=== PATIENT | female | born 1955 | race Caucasian/White ===

== ENCOUNTER 2017-02-06 09:53 | Emergency (ER) | payer OTHER ==
[2017-02-06] MEDS ORDERED: predniSONE 20 MG TAB ONE (10:34)
== END 2017-02-06 11:49 | disposition home or self-care (01) ==
LOC: NAV ERS 09:53
DX: J20.9 Acute bronchitis, unspecified (principal); I50.9 Heart failure, unspecified; E66.9 Obesity, unspecified; M10.9 Gout, unspecified; Z87.891 Personal history of nicotine dependence
CPT/HCPCS: 94640; J7506; J7620

== ENCOUNTER 2018-09-13 20:48 | Emergency (ER) | payer MEDICARE, OTHER ==
[2018-09-13] MEDS ORDERED: Sodium Chloride 0.9% 0 ML ONE (21:16)
[2018-09-13] MEDS ORDERED: Ketorolac Tromethamine 30 MG/ML VIAL ONE (21:16)
[2018-09-13] MEDS ORDERED: Promethazine HCl 25 MG/ML VIAL ONE (21:16)
[2018-09-13] MEDS ORDERED: Sodium Chloride 0.9% 100 ML ONE (21:16)
[2018-09-13 21:55] LABS: ALT (SGPT) 18 U/L (8-55); AST (SGOT) 18 U/L (5-34); Albumin 3.8 g/dL (3.4-4.8); Alkaline Phosphatase 71 U/L (40-150); Anion Gap 14 mmol/L (10-20); BUN (Urea Nitrogen) 12 mg/dL (9.8-20.1); Bilirubin, Total 0.6 mg/dL (0.2-1.2); Calc. Creatinine Clearance 0 mL/min (70-130); Calcium 9.6 mg/dL (7.8-10.44); Carbon Dioxide 24 mmol/L (23-31); Chloride 102 mmol/L (98-107); Estimated GFR-MDRD 65; Globulin 3.2 g/dL (2.4-3.5); Glucose 115 mg/dL (80-115); Lipase 13 U/L (8-78); Potassium 3.8 mmol/L (3.5-5.1); Sodium 136 mmol/L (136-145)
[2018-09-13 22:11] LABS: Hemoglobin 13.9 g/dL (12.0-16.0); Mean Corpuscular HGB CONC 31.5 g/dL (32.0-36.0); Mean Corpuscular Hemoglobin 30.5 pg (27.0-31.0); Mean Corpuscular Volume 96.9 fL (78.0-98.0); Mean Platelet Volume 9.7 fL (7.4-10.4); Platelet Count 196 thou/uL (130-400); RBC Distribution Width 13.4 % (11.5-14.5); Red Blood Cell (RBC) Count 4.57 mill/uL (4.20-5.40); White Blood Cell (WBC) Count 14.2 thou/uL (4.8-10.8)
[2018-09-13 22:23] LABS: Band 7 % (5-11); Eosinophils 2 % (0-10); Lymphocytes 17 % (21-51); MDiff Complete? YES; Monocytes 7 % (0-10); Neutrophil 66 % (42-75); PLT Morphology Comment Appears Adequate; RBC Morphology Normal; Reflex for Review?? NO
== END 2018-09-13 23:00 | disposition home or self-care (01) ==
LOC: NAV ERS 20:48
DX: A08.4 Viral intestinal infection, unspecified (principal); I50.9 Heart failure, unspecified; J44.9 Chronic obstructive pulmonary disease, unspecified; Z87.891 Personal history of nicotine dependence
CPT/HCPCS: 80053; 83690; 85025; 87804; 96361; 96374; 96375; J1885; J2550; J7050

== ENCOUNTER 2018-10-03 17:24 | Emergency (ER) | payer MEDICARE ==
--- NOTE | 2018-10-03 19:03 | RAD ---
TWO VIEWS CHEST 10/03/18 PROVIDED CLINICAL HISTORY: Cough. COMPARISON: 07/25/14. Evaluation is limited by patient body habitus. The cardiac silhouette appears enlarged. No focal cons olidation, pleural fluid or pneumothorax apparent. Degenerative changes are seen involving the thorac ic spine. IMPRESSION: Cardiomegaly without evidence for an acute cardiopulmonary process. POS: [facility]
== END 2018-10-03 18:15 | disposition home or self-care (01) ==
LOC: NAV ERS 17:24
DX: J02.9 Acute pharyngitis, unspecified (principal); M10.9 Gout, unspecified; M19.90 Unspecified osteoarthritis, unspecified site; I50.9 Heart failure, unspecified; E66.9 Obesity, unspecified; J44.9 Chronic obstructive pulmonary disease, unspecified; Z87.891 Personal history of nicotine dependence
CPT/HCPCS: 71046; 87081; 87430

== ENCOUNTER 2019-01-27 21:01 | Emergency (ER) | payer MEDICARE ==
[2019-01-27] MEDS ORDERED: Clindamycin 150 MG CAP ONE (22:06)
== END 2019-01-27 22:15 | disposition home or self-care (01) ==
LOC: NAV ERS 21:01
DX: L03.114 Cellulitis of left upper limb (principal); I11.0 Hypertensive heart disease with heart failure; I50.9 Heart failure, unspecified; M19.90 Unspecified osteoarthritis, unspecified site; E66.9 Obesity, unspecified; J44.9 Chronic obstructive pulmonary disease, unspecified; Z87.891 Personal history of nicotine dependence; Z79.84 Long term (current) use of oral hypoglycemic drugs; Z79.899 Other long term (current) drug therapy
CPT/HCPCS: 36415; 84550; 99283

== ENCOUNTER 2019-10-22 09:40 | Emergency (ER) | payer MEDICARE ==
[2019-10-22] MEDS ORDERED: Sodium Chloride 0.9% 1,000 ML ONE (09:57)
[2019-10-22] MEDS ORDERED: cefTRIAXone\\ROCEPHIN 2 GM VIAL ONE (09:57)
[2019-10-22] MEDS ORDERED: Sodium Chloride 0.9% 100 ML ONE (09:57)
[2019-10-22] MEDS ORDERED: Ondansetron PF 4 MG/2 ML Vial ONE ×2 (09:57→12:21)
[2019-10-22] MEDS ORDERED: Acetaminophen 500 MG TAB ONE (09:57)
[2019-10-22 10:22] LABS: #Lymphocytes 1.7 thou/uL (1.20-3.40); #Monocytes 0.4 thou/uL (0.11-0.59); #Neutrophils 7.1 thou/uL (1.40-6.50); %Basophils 0.4 % (0.0-1.0); %Monocytes 4.4 % (0.0-10.0); %Neutrophils 77.1 % (42.0-75.0); Hemoglobin 15.1 g/dL (12.0-16.0); Mean Corpuscular HGB CONC 31.6 g/dL (32.0-36.0); Mean Corpuscular Hemoglobin 29.5 pg (27.0-31.0); Mean Corpuscular Volume 93.5 fL (78.0-98.0); Mean Platelet Volume 10.1 fL (7.4-10.4); Platelet Count 151 thou/uL (130-400); RBC Distribution Width 14.4 % (11.5-14.5); Red Blood Cell (RBC) Count 5.11 mill/uL (4.20-5.40); White Blood Cell (WBC) Count 9.2 thou/uL (4.8-10.8)
--- NOTE | 2019-10-22 10:40 | RAD ---
PORTABLE CHEST 1 VIEW: DATE: 10/22/2019. TIME: 9:56 a.m. HISTORY: Shortness of breath. FINDINGS/IMPRESSION: Comparison is made with the exam of 10/03/2018. The heart size is mildly enlarged. The lungs are expanded without lobar consolidation, pneumothorace s, live pulmonary edema, or pleural effusions. There is mild prominence of the pulmonary vascularit y. POS: OFF
[2019-10-22 10:59] LABS: ALT (SGPT) 21 U/L (8-55); AST (SGOT) 32 U/L (5-34); Albumin 3.5 g/dL (3.4-4.8); Alkaline Phosphatase 88 U/L (40-110); Anion Gap 15 mmol/L (10-20); BUN (Urea Nitrogen) 15 mg/dL (9.8-20.1); Bilirubin, Total 0.5 mg/dL (0.2-1.2); Calc. Creatinine Clearance 0 mL/min (70-130); Calcium 8.8 mg/dL (7.8-10.44); Carbon Dioxide 23 mmol/L (23-31); Chloride 102 mmol/L (98-107); Estimated GFR-MDRD 65; Globulin 3.5 g/dL (2.4-3.5); Glucose 102 mg/dL (80-115); Sodium 136 mmol/L (136-145)
[2019-10-22] MEDS ORDERED: Oseltamivir 75 MG CAP ONE (11:07)
[2019-10-22 15:08] LABS: Bilirubin Negative (Negative); Blood, Urine Large (Negative); Glucose, Urine (Dipstick) Negative (Negative); Leukocyte Trace (Negative); Nitrite Positive (Negative); Protein, Urine (Dipstick) > or equal to 300 mg/dL (Neg-Trace); Urobilinogen 0.2 mg/dL (Less than 2)
[2019-10-22 15:43] LABS: Clarity Hazy (Clear)
[2019-10-22 15:44] LABS: Bacteria/HPF 2+ HPF (None Seen); RBC/HPF 0-3 HPF (0-3); Squamous Epithelial 0-3 HPF (0-3)
== END 2019-10-22 16:09 | disposition short-term general hospital (02) ==
LOC: NAV ERS 09:40
DX: J11.1 Influenza due to unidentified influenza virus with other respiratory manifestations (principal); R09.02 Hypoxemia; E86.0 Dehydration; J44.9 Chronic obstructive pulmonary disease, unspecified; E66.9 Obesity, unspecified; E11.9 Type 2 diabetes mellitus without complications; I50.9 Heart failure, unspecified; M19.90 Unspecified osteoarthritis, unspecified site; M10.9 Gout, unspecified; M79.7 Fibromyalgia; Z87.891 Personal history of nicotine dependence; Z79.84 Long term (current) use of oral hypoglycemic drugs; Z79.899 Other long term (current) drug therapy
CPT/HCPCS: 71045; 80053; 81003; 81015; 83605; 83880; 84484; 85025; 87040; 87086; 87804; 93005; 94640; 94760; 96361; 96374; 96375; 96376; J0696; J2405; J3490; J7050; J7620

== ENCOUNTER 2022-04-29 14:39 | Emergency (ER) | payer MEDICARE ==
[2022-04-29] MEDS ORDERED: Sodium Chloride 0.9% 100 ML ONE (16:10)
[2022-04-29] MEDS ORDERED: Cefepime 2 GM VIAL ONE (16:10)
[2022-04-29 16:14] LABS: Anion Gap 17 mmol/L (10-20); BUN (Urea Nitrogen) 22 mg/dL (9.8-20.1); Calc. Creatinine Clearance 0 mL/min (70-130); Calcium 9.6 mg/dL (7.8-10.44); Carbon Dioxide 27 mmol/L (23-31); Chloride 100 mmol/L (98-107); Estimated GFR 51; Glucose 156 mg/dL (80-115); Potassium 3.7 mmol/L (3.5-5.1); Sodium 140 mmol/L (136-145)
[2022-04-29 16:20] LABS: #Basophils 0.1 thou/uL (0.0-0.2); #Eosinphils 0.3 thou/uL (0.0-0.7); #Lymphocytes 2.5 thou/uL (1.20-3.40); #Monocytes 0.9 thou/uL (0.11-0.59); #Neutrophils 5.8 thou/uL (1.40-6.50); %Lymphocytes 26.5 % (21.0-51.0); %Monocytes 8.9 % (0.0-10.0); %Neutrophils 60.6 % (42.0-75.0); Hemoglobin 12.4 g/dL (12.0-16.0); Mean Corpuscular HGB CONC 28.5 g/dL (32.0-36.0); Mean Corpuscular Hemoglobin 27.8 pg (27.0-31.0); Mean Corpuscular Volume 97.4 fL (78.0-98.0); Mean Platelet Volume 10.4 fL (7.4-10.4); Platelet Count 251 thou/uL (130-400); RBC Distribution Width 15.4 % (11.5-14.5); Red Blood Cell (RBC) Count 4.45 mill/uL (4.20-5.40); White Blood Cell (WBC) Count 9.6 thou/uL (4.8-10.8)
[2022-04-29] MEDS ORDERED: Sodium Chloride 0.9% 500 ML ONE (16:40)
[2022-04-29 17:07] LABS: SARS-CoV-2 NAA Rapid Test Not Detected (NotDetected)
== END 2022-04-29 16:42 | disposition home or self-care (01) ==
LOC: NAV ERS 14:39 → UNDOADMOB 16:25 → NAV ACUTE 16:25 → NAV ERS 16:42 → UNDODISOB 19:10
DX: L03.115 Cellulitis of right lower limb (principal); I50.9 Heart failure, unspecified; E11.9 Type 2 diabetes mellitus without complications; J44.9 Chronic obstructive pulmonary disease, unspecified; Z87.891 Personal history of nicotine dependence; Z79.899 Other long term (current) drug therapy
CPT/HCPCS: 80048; 83605; 83880; 85025; 87040; 87149 ×2; 96365; 96366; 96367; 99284; U0002; J0692; J3370; J3490; J7030

== ENCOUNTER 2022-11-18 11:03 | Inpatient (IN) | payer MEDICARE ==
[2022-11-18] MEDS ORDERED: Benzonatate 100 MG CAP PO PRN (11:30)
[2022-11-18] MEDS ORDERED: Levalbuterol HCl 1.25 MG/0.5 ML NEB NEB PRN (11:32)
[2022-11-18] MEDS ORDERED: Acetaminophen 325 MG TAB PO PRN (11:36)
[2022-11-18] MEDS ORDERED: Dextrose 50% Abboject 50 ML SYRINGE SLOW IVP PRN (11:49)
[2022-11-18] MEDS ORDERED: HumaLOG 300 UNITS/3 ML VIAL SC PRN ×2 (11:49)
[2022-11-18] MEDS: Ipratropium Bromide 2.5 ml Neb NEB SCH ×2 (13:00→18:36)
[2022-11-18] MEDS: Torsemide 20 MG TAB PO SCH (14:34)
[2022-11-18] MEDS: cefTRIAXone\\ROCEPHIN 1 GM VIAL IVPB SCH (20:34)
[2022-11-18] MEDS: Mometasone/Formoterol 60 PUFF AER INH SCH (20:35)
[2022-11-18] MEDS: DULoxetine 30 MG CAP PO SCH (20:35)
[2022-11-18] MEDS: Montelukast Sodium 10 mg Tablet PO SCH (20:35)
[2022-11-18] MEDS: Carvedilol 25 MG TAB PO SCH (20:35)
[2022-11-18] MEDS: Aripiprazole 10 MG TAB PO SCH (20:35)
[2022-11-18] MEDS: HYDROcodone/Acetaminophen 5/325 mg Tablet PO PRN (21:04)
[2022-11-19] MEDS: Ipratropium Bromide 2.5 ml Neb NEB SCH ×4 (01:01→18:06)
[2022-11-19] MEDS: Ondansetron ODT 4 MG TAB SL PRN ×2 (04:59→17:45)
[2022-11-19 05:44] LABS: White Blood Cell (WBC) Count 20.6 10x3/uL (4.8-10.8)
[2022-11-19 05:45] LABS: Hemoglobin 12.3 g/dL (12.0-16.0); Manual Diff?? YES; Mean Corpuscular HGB CONC 30.6 g/dL (32.0-36.0); Mean Corpuscular Hemoglobin 27.8 pg (27.0-31.0); Mean Corpuscular Volume 91.2 fl (78.0-98.0); Mean Platelet Volume 8.7 fL (7.4-10.4); Platelet Count 412 10x3/uL (130-400); RBC Distribution Width 16.8 % (11.5-14.5); Red Blood Cell (RBC) Count 4.42 mill/uL (4.20-5.40)
[2022-11-19 05:50] LABS: ALT (SGPT) 41 U/L (8-55); AST (SGOT) 26 U/L (5-34); Albumin 3.3 g/dL (3.4-4.8); Alkaline Phosphatase 158 U/L (40-110); Anion Gap 18 mmol/L (10-20); BUN (Urea Nitrogen) 51 mg/dL (9.8-20.1); Bilirubin, Total 0.7 mg/dL (0.2-1.2); Calc. Creatinine Clearance 69 mL/min (70-130); Calcium 9.9 mg/dL (7.8-10.44); Carbon Dioxide 29 mmol/L (23-31); Chloride 93 mmol/L (98-107); Estimated GFR 37; Globulin 4.7 g/dL (2.4-3.5); Glucose 120 mg/dL (80-115); Potassium 3.8 mmol/L (3.5-5.1); Sodium 136 mmol/L (136-145)
[2022-11-19 05:57] LABS: Band 2 % (5-11); Lymphocytes 30 % (21-51); MDiff Complete? YES; Neutrophil 56 % (42-75)
[2022-11-19 05:58] LABS: Monocytes 12 % (0-10); Platelet Morphology Comment Appears Adequate
[2022-11-19 05:59] LABS: RBC Morphology Normal
[2022-11-19] MEDS: Polyethylene Glycol 3350 17 GM Packet PO SCH (09:24)
[2022-11-19] MEDS: Carvedilol 25 MG TAB PO SCH ×2 (09:26→20:28)
[2022-11-19] MEDS: DULoxetine 30 MG CAP PO SCH ×2 (09:26→20:27)
[2022-11-19] MEDS: Empagliflozin 10 MG TAB PO SCH (09:26)
[2022-11-19] MEDS: Torsemide 20 MG TAB PO SCH ×2 (09:26→13:15)
[2022-11-19] MEDS: Allopurinol 100 MG TAB PO SCH (09:26)
[2022-11-19] MEDS: Spironolactone 25 MG TAB PO SCH (09:27)
[2022-11-19] MEDS: Mometasone/Formoterol 60 PUFF AER INH SCH ×2 (09:27→20:31)
[2022-11-19] MEDS: HYDROcodone/Acetaminophen 5/325 mg Tablet PO PRN ×2 (11:14→20:35)
[2022-11-19] MEDS ORDERED: Levalbuterol HCl 1.25 MG/0.5 ML NEB NEB SCH ×3 (12:00→18:00)
[2022-11-19] MEDS ORDERED: Levalbuterol HCl 1.25 MG/0.5 ML NEB ONE (14:18)
[2022-11-19] MEDS: Montelukast Sodium 10 mg Tablet PO SCH (20:27)
[2022-11-19] MEDS: Aripiprazole 10 MG TAB PO SCH (20:28)
[2022-11-19] MEDS: cefTRIAXone\\ROCEPHIN 1 GM VIAL IVPB SCH (20:29)
[2022-11-20] MEDS: Ipratropium Bromide 2.5 ml Neb NEB SCH ×4 (00:13→18:38)
[2022-11-20 06:01] LABS: #Basophils 0.2 thou/uL (0.0-0.2); #Eosinphils 0.3 thou/uL (0.0-0.7); #Lymphocytes 3.2 thou/uL (1.20-3.40); #Monocytes 2.1 thou/uL (0.11-0.59); #Neutrophils 13.2 thou/uL (1.40-6.50); %Basophils 0.9 % (0.0-1.0); %Eosinophils 1.5 % (0.0-10.0); %Lymphocytes 16.8 % (21.0-51.0); %Monocytes 10.9 % (0.0-10.0); %Neutrophils 69.9 % (42.0-75.0); Hemoglobin 12.1 g/dL (12.0-16.0); Mean Corpuscular HGB CONC 30.1 g/dL (32.0-36.0); Mean Corpuscular Hemoglobin 27.5 pg (27.0-31.0); Mean Corpuscular Volume 91.5 fl (78.0-98.0); Mean Platelet Volume 8.6 fL (7.4-10.4); Platelet Count 397 10x3/uL (130-400); Red Blood Cell (RBC) Count 4.38 mill/uL (4.20-5.40); White Blood Cell (WBC) Count 18.8 10x3/uL (4.8-10.8)
[2022-11-20 06:15] LABS: Anion Gap 17 mmol/L (10-20); BUN (Urea Nitrogen) 50 mg/dL (9.8-20.1); Calc. Creatinine Clearance 64 mL/min (70-130); Calcium 9.6 mg/dL (7.8-10.44); Carbon Dioxide 31 mmol/L (23-31); Chloride 95 mmol/L (98-107); Estimated GFR 34; Glucose 107 mg/dL (80-115); Potassium 3.7 mmol/L (3.5-5.1); Sodium 139 mmol/L (136-145)
[2022-11-20] MEDS: Allopurinol 100 MG TAB PO SCH (09:04)
[2022-11-20] MEDS: Empagliflozin 10 MG TAB PO SCH (09:04)
[2022-11-20] MEDS: Torsemide 20 MG TAB PO SCH ×2 (09:04→13:42)
[2022-11-20] MEDS: DULoxetine 30 MG CAP PO SCH ×2 (09:04→20:22)
[2022-11-20] MEDS: Mometasone/Formoterol 60 PUFF AER INH SCH ×2 (09:05→20:23)
[2022-11-20] MEDS: Carvedilol 25 MG TAB PO SCH ×2 (09:05→20:23)
[2022-11-20] MEDS: Spironolactone 25 MG TAB PO SCH (09:05)
[2022-11-20] MEDS ORDERED: cloNIDine 0.1 MG TAB PO PRN (09:23)
[2022-11-20] MEDS: Polyethylene Glycol 3350 17 GM Packet PO SCH (09:26)
[2022-11-20] MEDS: Aripiprazole 10 MG TAB PO SCH (20:22)
[2022-11-20] MEDS: cefTRIAXone\\ROCEPHIN 1 GM VIAL IVPB SCH (20:23)
[2022-11-20] MEDS: Montelukast Sodium 10 mg Tablet PO SCH (20:23)
[2022-11-20] MEDS: HYDROcodone/Acetaminophen 5/325 mg Tablet PO PRN (21:29)
[2022-11-20] MEDS: Ondansetron ODT 4 MG TAB SL PRN (21:29)
[2022-11-21] MEDS: Ipratropium Bromide 2.5 ml Neb NEB SCH ×5 (00:02→23:31)
[2022-11-21] MEDS: Torsemide 20 MG TAB PO SCH ×2 (07:45→13:06)
[2022-11-21] MEDS: Allopurinol 100 MG TAB PO SCH (07:45)
[2022-11-21] MEDS: Carvedilol 25 MG TAB PO SCH ×2 (07:46→21:04)
[2022-11-21] MEDS: DULoxetine 30 MG CAP PO SCH ×2 (07:46→21:05)
[2022-11-21] MEDS: Empagliflozin 10 MG TAB PO SCH (07:46)
[2022-11-21] MEDS: Spironolactone 25 MG TAB PO SCH (07:46)
[2022-11-21] MEDS: Mometasone/Formoterol 60 PUFF AER INH SCH ×2 (07:46→21:06)
[2022-11-21] MEDS: Polyethylene Glycol 3350 17 GM Packet PO SCH (08:40)
[2022-11-21] MEDS: HYDROcodone/Acetaminophen 5/325 mg Tablet PO PRN ×2 (09:18→15:51)
[2022-11-21] MEDS: Nystatin 500,000 UNITS/5 ML UDCUP SSW SCH ×2 (17:21→21:04)
[2022-11-21] MEDS: Methocarbamol 500 MG TAB PO PRN (17:51)
[2022-11-21] MEDS: cefTRIAXone\\ROCEPHIN 1 GM VIAL IVPB SCH (21:03)
[2022-11-21] MEDS: Aripiprazole 10 MG TAB PO SCH (21:04)
[2022-11-21] MEDS: Montelukast Sodium 10 mg Tablet PO SCH (21:04)
[2022-11-22 04:51] LABS: White Blood Cell (WBC) Count 14.3 10x3/uL (4.8-10.8)
[2022-11-22 04:52] LABS: #Basophils 0.2 thou/uL (0.0-0.2); #Eosinphils 0.4 thou/uL (0.0-0.7); #Lymphocytes 2.6 thou/uL (1.20-3.40); #Monocytes 1.4 thou/uL (0.11-0.59); #Neutrophils 9.7 thou/uL (1.40-6.50); %Basophils 1.2 % (0.0-1.0); %Lymphocytes 18.2 % (21.0-51.0); %Monocytes 9.6 % (0.0-10.0); %Neutrophils 68.1 % (42.0-75.0); Hemoglobin 11.7 g/dL (12.0-16.0); Manual Diff?? NO; Mean Corpuscular HGB CONC 30.2 g/dL (32.0-36.0); Mean Corpuscular Hemoglobin 27.8 pg (27.0-31.0); Mean Corpuscular Volume 92.1 fl (78.0-98.0); Mean Platelet Volume 8.9 fL (7.4-10.4); Platelet Count 460 10x3/uL (130-400); Red Blood Cell (RBC) Count 4.21 mill/uL (4.20-5.40)
[2022-11-22 05:18] LABS: Anion Gap 17 mmol/L (10-20); BUN (Urea Nitrogen) 46 mg/dL (9.8-20.1); Calc. Creatinine Clearance 74 mL/min (70-130); Calcium 9.7 mg/dL (7.8-10.44); Carbon Dioxide 28 mmol/L (23-31); Chloride 97 mmol/L (98-107); Estimated GFR 41; Glucose 114 mg/dL (80-115); Potassium 3.6 mmol/L (3.5-5.1); Sodium 138 mmol/L (136-145)
[2022-11-22] MEDS: Ipratropium Bromide 2.5 ml Neb NEB SCH ×3 (05:58→17:38)
[2022-11-22] MEDS: Spironolactone 25 MG TAB PO SCH (07:51)
[2022-11-22] MEDS: Allopurinol 100 MG TAB PO SCH (07:51)
[2022-11-22] MEDS: Carvedilol 25 MG TAB PO SCH ×2 (07:51→20:19)
[2022-11-22] MEDS: DULoxetine 30 MG CAP PO SCH ×2 (07:52→20:19)
[2022-11-22] MEDS: Empagliflozin 10 MG TAB PO SCH (07:52)
[2022-11-22] MEDS: Torsemide 20 MG TAB PO SCH ×2 (07:52→12:54)
[2022-11-22] MEDS: Mometasone/Formoterol 60 PUFF AER INH SCH ×2 (07:52→20:19)
[2022-11-22] MEDS: Polyethylene Glycol 3350 17 GM Packet PO SCH (07:53)
[2022-11-22] MEDS: Nystatin 500,000 UNITS/5 ML UDCUP SSW SCH ×4 (07:53→20:23)
[2022-11-22] MEDS: Ondansetron ODT 4 MG TAB SL PRN (07:57)
[2022-11-22] MEDS: HYDROcodone/Acetaminophen 5/325 mg Tablet PO PRN ×3 (08:02→21:12)
[2022-11-22] MEDS: Methocarbamol 500 MG TAB PO PRN ×2 (11:14→21:11)
[2022-11-22] MEDS: cefTRIAXone\\ROCEPHIN 1 GM VIAL IVPB SCH (20:18)
[2022-11-22] MEDS: Aripiprazole 10 MG TAB PO SCH (20:18)
[2022-11-22] MEDS: Montelukast Sodium 10 mg Tablet PO SCH (20:19)
[2022-11-23] MEDS: Ipratropium Bromide 2.5 ml Neb NEB SCH ×4 (01:00→18:03)
[2022-11-23] MEDS: Allopurinol 100 MG TAB PO SCH (07:56)
[2022-11-23] MEDS: Empagliflozin 10 MG TAB PO SCH (07:57)
[2022-11-23] MEDS: Torsemide 20 MG TAB PO SCH ×2 (07:57→13:23)
[2022-11-23] MEDS: Carvedilol 25 MG TAB PO SCH ×2 (07:57→20:47)
[2022-11-23] MEDS: Mometasone/Formoterol 60 PUFF AER INH SCH ×2 (07:57→20:56)
[2022-11-23] MEDS: Spironolactone 25 MG TAB PO SCH (07:57)
[2022-11-23] MEDS: Nystatin 500,000 UNITS/5 ML UDCUP SSW SCH ×4 (07:57→20:46)
[2022-11-23] MEDS: DULoxetine 30 MG CAP PO SCH ×2 (07:57→20:47)
[2022-11-23] MEDS: Polyethylene Glycol 3350 17 GM Packet PO SCH (09:57)
[2022-11-23] MEDS: HYDROcodone/Acetaminophen 5/325 mg Tablet PO PRN ×2 (10:01→20:46)
[2022-11-23] MEDS: Methocarbamol 500 MG TAB PO PRN (10:02)
[2022-11-23] MEDS: Montelukast Sodium 10 mg Tablet PO SCH (20:47)
[2022-11-23] MEDS: Aripiprazole 10 MG TAB PO SCH (20:47)
[2022-11-23] MEDS: cefTRIAXone\\ROCEPHIN 1 GM VIAL IVPB SCH (20:51)
[2022-11-24] MEDS: Ipratropium Bromide 2.5 ml Neb NEB SCH ×4 (02:50→17:34)
[2022-11-24] MEDS: Carvedilol 25 MG TAB PO SCH ×2 (07:58→21:21)
[2022-11-24] MEDS: Torsemide 20 MG TAB PO SCH ×2 (07:59→13:09)
[2022-11-24] MEDS: Allopurinol 100 MG TAB PO SCH (07:59)
[2022-11-24] MEDS: Empagliflozin 10 MG TAB PO SCH (07:59)
[2022-11-24] MEDS: DULoxetine 30 MG CAP PO SCH ×2 (07:59→21:21)
[2022-11-24] MEDS: Mometasone/Formoterol 60 PUFF AER INH SCH ×2 (08:00→21:21)
[2022-11-24] MEDS: Nystatin 500,000 UNITS/5 ML UDCUP SSW SCH ×4 (08:00→21:21)
[2022-11-24] MEDS: Spironolactone 25 MG TAB PO SCH (08:00)
[2022-11-24] MEDS: Polyethylene Glycol 3350 17 GM Packet PO SCH (08:00)
[2022-11-24] MEDS: Methocarbamol 500 MG TAB PO PRN ×2 (09:19→21:43)
[2022-11-24] MEDS: HYDROcodone/Acetaminophen 5/325 mg Tablet PO PRN ×2 (13:09→20:24)
[2022-11-24] MEDS: Ondansetron ODT 4 MG TAB SL PRN (17:49)
[2022-11-24] MEDS: cefTRIAXone\\ROCEPHIN 1 GM VIAL IVPB SCH (20:25)
[2022-11-24] MEDS: Montelukast Sodium 10 mg Tablet PO SCH (21:20)
[2022-11-24] MEDS: Aripiprazole 10 MG TAB PO SCH (21:20)
[2022-11-25] MEDS: Ipratropium Bromide 2.5 ml Neb NEB SCH ×4 (00:17→17:23)
[2022-11-25 06:06] LABS: #Basophils 0.2 thou/uL (0.0-0.2); #Eosinphils 0.4 thou/uL (0.0-0.7); #Lymphocytes 2.7 thou/uL (1.20-3.40); #Monocytes 1.8 thou/uL (0.11-0.59); #Neutrophils 8.4 thou/uL (1.40-6.50); %Basophils 1.5 % (0.0-1.0); %Eosinophils 3.1 % (0.0-10.0); %Monocytes 13.1 % (0.0-10.0); %Neutrophils 62.3 % (42.0-75.0); Hemoglobin 12.3 g/dL (12.0-16.0); Mean Corpuscular HGB CONC 29.9 g/dL (32.0-36.0); Mean Corpuscular Volume 93.7 fl (78.0-98.0); Mean Platelet Volume 8.8 fL (7.4-10.4); Platelet Count 479 10x3/uL (130-400); RBC Distribution Width 17.7 % (11.5-14.5); Red Blood Cell (RBC) Count 4.38 mill/uL (4.20-5.40); White Blood Cell (WBC) Count 13.5 10x3/uL (4.8-10.8)
[2022-11-25 06:17] LABS: Anion Gap 16 mmol/L (10-20); BUN (Urea Nitrogen) 34 mg/dL (9.8-20.1); Calc. Creatinine Clearance 72 mL/min (70-130); Calcium 10.1 mg/dL (7.8-10.44); Carbon Dioxide 31 mmol/L (23-31); Chloride 97 mmol/L (98-107); Estimated GFR 39; Glucose 116 mg/dL (80-115); Potassium 3.7 mmol/L (3.5-5.1); Sodium 140 mmol/L (136-145)
[2022-11-25] MEDS: Ondansetron ODT 4 MG TAB SL PRN ×2 (08:41→18:13)
[2022-11-25] MEDS: Mometasone/Formoterol 60 PUFF AER INH SCH ×2 (09:16→20:50)
[2022-11-25] MEDS: Nystatin 500,000 UNITS/5 ML UDCUP SSW SCH ×4 (09:17→20:52)
[2022-11-25] MEDS: Torsemide 20 MG TAB PO SCH ×2 (09:17→14:14)
[2022-11-25] MEDS: Polyethylene Glycol 3350 17 GM Packet PO SCH (09:17)
[2022-11-25] MEDS: Methocarbamol 500 MG TAB PO PRN ×3 (09:17→20:51)
[2022-11-25] MEDS: Allopurinol 100 MG TAB PO SCH (09:17)
[2022-11-25] MEDS: Carvedilol 25 MG TAB PO SCH ×2 (09:18→20:51)
[2022-11-25] MEDS: DULoxetine 30 MG CAP PO SCH ×2 (09:18→20:50)
[2022-11-25] MEDS: Spironolactone 25 MG TAB PO SCH (09:18)
[2022-11-25] MEDS: Empagliflozin 10 MG TAB PO SCH (09:18)
[2022-11-25] MEDS: Aripiprazole 10 MG TAB PO SCH (20:50)
[2022-11-25] MEDS: Montelukast Sodium 10 mg Tablet PO SCH (20:51)
[2022-11-25] MEDS: HYDROcodone/Acetaminophen 5/325 mg Tablet PO PRN (20:51)
[2022-11-26] MEDS: Ipratropium Bromide 2.5 ml Neb NEB SCH ×4 (01:14→19:13)
[2022-11-26] MEDS: Methocarbamol 500 MG TAB PO PRN ×3 (03:11→19:13)
[2022-11-26] MEDS: Ondansetron ODT 4 MG TAB SL PRN ×2 (07:48→19:13)
[2022-11-26] MEDS: Mometasone/Formoterol 60 PUFF AER INH SCH ×2 (08:23→20:49)
[2022-11-26] MEDS: Polyethylene Glycol 3350 17 GM Packet PO SCH ×2 (08:23→08:29)
[2022-11-26] MEDS: Nystatin 500,000 UNITS/5 ML UDCUP SSW SCH ×4 (08:23→20:48)
[2022-11-26] MEDS: Allopurinol 100 MG TAB PO SCH (08:23)
[2022-11-26] MEDS: Empagliflozin 10 MG TAB PO SCH (08:24)
[2022-11-26] MEDS: DULoxetine 30 MG CAP PO SCH ×2 (08:24→20:48)
[2022-11-26] MEDS: Carvedilol 25 MG TAB PO SCH ×2 (08:24→20:48)
[2022-11-26] MEDS: Spironolactone 25 MG TAB PO SCH (08:24)
[2022-11-26] MEDS: Torsemide 20 MG TAB PO SCH ×2 (08:24→13:15)
[2022-11-26] MEDS: Senokot S 8.6-50 MG TAB PO PRN (08:31)
[2022-11-26] MEDS: HYDROcodone/Acetaminophen 5/325 mg Tablet PO PRN (10:54)
[2022-11-26] MEDS: Montelukast Sodium 10 mg Tablet PO SCH (20:48)
[2022-11-26] MEDS: Aripiprazole 10 MG TAB PO SCH (20:48)
[2022-11-27] MEDS: Methocarbamol 500 MG TAB PO PRN ×4 (03:42→20:48)
[2022-11-27] MEDS: Ipratropium Bromide 2.5 ml Neb NEB SCH ×4 (06:08→17:36)
[2022-11-27] MEDS: Ondansetron ODT 4 MG TAB SL PRN (08:04)
[2022-11-27] MEDS: Torsemide 20 MG TAB PO SCH ×2 (08:11→14:11)
[2022-11-27] MEDS: Carvedilol 25 MG TAB PO SCH ×2 (08:13→20:48)
[2022-11-27] MEDS: Empagliflozin 10 MG TAB PO SCH (08:13)
[2022-11-27] MEDS: Spironolactone 25 MG TAB PO SCH (08:15)
[2022-11-27] MEDS: Mometasone/Formoterol 60 PUFF AER INH SCH ×2 (08:15→20:51)
[2022-11-27] MEDS: DULoxetine 30 MG CAP PO SCH ×2 (08:15→20:48)
[2022-11-27] MEDS: Allopurinol 100 MG TAB PO SCH (08:15)
[2022-11-27] MEDS: Polyethylene Glycol 3350 17 GM Packet PO SCH (08:16)
[2022-11-27] MEDS: Nystatin 500,000 UNITS/5 ML UDCUP SSW SCH ×4 (08:16→20:51)
[2022-11-27] MEDS: Senokot S 8.6-50 MG TAB PO PRN (08:22)
[2022-11-27] MEDS: HYDROcodone/Acetaminophen 5/325 mg Tablet PO PRN ×2 (08:22→20:48)
[2022-11-27] MEDS ORDERED: Levalbuterol HCl 0.63 MG/3 ML NEB ONE (08:47)
[2022-11-27] MEDS ORDERED: Levalbuterol HCl 1.25 MG/0.5 ML NEB ONE (08:51)
[2022-11-27] MEDS: Aripiprazole 10 MG TAB PO SCH (20:48)
[2022-11-27] MEDS: Montelukast Sodium 10 mg Tablet PO SCH (20:48)
[2022-11-28] MEDS: Ipratropium Bromide 2.5 ml Neb NEB SCH ×4 (00:28→17:32)
[2022-11-28] MEDS: Polyethylene Glycol 3350 17 GM Packet PO SCH (08:17)
[2022-11-28] MEDS: Mometasone/Formoterol 60 PUFF AER INH SCH ×2 (08:17→21:08)
[2022-11-28] MEDS: Allopurinol 100 MG TAB PO SCH (08:17)
[2022-11-28] MEDS: Torsemide 20 MG TAB PO SCH ×2 (08:17→14:05)
[2022-11-28] MEDS: Empagliflozin 10 MG TAB PO SCH (08:17)
[2022-11-28] MEDS: Nystatin 500,000 UNITS/5 ML UDCUP SSW SCH ×4 (08:17→21:07)
[2022-11-28] MEDS: DULoxetine 30 MG CAP PO SCH ×2 (08:17→21:09)
[2022-11-28] MEDS: Carvedilol 25 MG TAB PO SCH ×2 (08:18→21:08)
[2022-11-28] MEDS: Spironolactone 25 MG TAB PO SCH (08:18)
[2022-11-28] MEDS: Methocarbamol 500 MG TAB PO PRN ×3 (09:30→21:07)
[2022-11-28] MEDS: Senokot S 8.6-50 MG TAB PO PRN (09:31)
[2022-11-28] MEDS ORDERED: Polyethylene Glycol 3350 17 GM Packet PO PRN (09:53)
[2022-11-28 14:58] LABS: #Basophils 0.2 thou/uL (0.0-0.2); #Eosinphils 0.3 thou/uL (0.0-0.7); #Monocytes 1.5 thou/uL (0.11-0.59); #Neutrophils 7.2 thou/uL (1.40-6.50); %Basophils 1.2 % (0.0-1.0); %Eosinophils 2.5 % (0.0-10.0); %Lymphocytes 24.9 % (21.0-51.0); %Monocytes 12.2 % (0.0-10.0); %Neutrophils 59.1 % (42.0-75.0); Mean Corpuscular HGB CONC 29.2 g/dL (32.0-36.0); Mean Corpuscular Hemoglobin 28.5 pg (27.0-31.0); Mean Corpuscular Volume 97.6 fl (78.0-98.0); Mean Platelet Volume 8.8 fL (7.4-10.4); Platelet Count 481 10x3/uL (130-400); RBC Distribution Width 18.1 % (11.5-14.5); Red Blood Cell (RBC) Count 4.21 mill/uL (4.20-5.40); White Blood Cell (WBC) Count 12.2 10x3/uL (4.8-10.8)
[2022-11-28 15:11] LABS: ALT (SGPT) 19 U/L (8-55); AST (SGOT) 23 U/L (5-34); Albumin 3.4 g/dL (3.4-4.8); Alkaline Phosphatase 112 U/L (40-110); Anion Gap 19 mmol/L (10-20); BUN (Urea Nitrogen) 30 mg/dL (9.8-20.1); Bilirubin, Total 0.7 mg/dL (0.2-1.2); Calc. Creatinine Clearance 64 mL/min (70-130); Carbon Dioxide 22 mmol/L (23-31); Chloride 101 mmol/L (98-107); Estimated GFR 35; Globulin 4.6 g/dL (2.4-3.5); Glucose 99 mg/dL (80-115); Potassium 3.6 mmol/L (3.5-5.1); Sodium 138 mmol/L (136-145)
[2022-11-28 15:25] LABS: PTT 32.2 sec (22.9-36.1)
[2022-11-28] MEDS: Lidocaine 5% Patch TD SCH (17:04)
[2022-11-28] MEDS: Aripiprazole 10 MG TAB PO SCH (21:07)
[2022-11-28] MEDS: Montelukast Sodium 10 mg Tablet PO SCH (21:08)
[2022-11-29] MEDS: Ipratropium Bromide 2.5 ml Neb NEB SCH ×4 (00:21→18:06)
[2022-11-29 06:01] LABS: #Basophils 0.1 thou/uL (0.0-0.2); #Eosinphils 0.3 thou/uL (0.0-0.7); #Lymphocytes 2.7 thou/uL (1.20-3.40); #Monocytes 1.3 thou/uL (0.11-0.59); #Neutrophils 5.7 thou/uL (1.40-6.50); %Eosinophils 2.7 % (0.0-10.0); %Lymphocytes 26.5 % (21.0-51.0); %Neutrophils 56.8 % (42.0-75.0); Hemoglobin 11.5 g/dL (12.0-16.0); Mean Corpuscular HGB CONC 29.7 g/dL (32.0-36.0); Mean Corpuscular Hemoglobin 27.9 pg (27.0-31.0); Mean Corpuscular Volume 94.1 fl (78.0-98.0); Platelet Count 431 10x3/uL (130-400); RBC Distribution Width 17.3 % (11.5-14.5); Red Blood Cell (RBC) Count 4.13 mill/uL (4.20-5.40)
[2022-11-29] MEDS: Transdermal Patch Removal TOP SCH (06:06)
[2022-11-29 06:14] LABS: Anion Gap 17 mmol/L (10-20); BUN (Urea Nitrogen) 29 mg/dL (9.8-20.1); Calc. Creatinine Clearance 77 mL/min (70-130); Calcium 9.8 mg/dL (7.8-10.44); Carbon Dioxide 28 mmol/L (23-31); Chloride 101 mmol/L (98-107); Estimated GFR 45; Glucose 116 mg/dL (80-115); Potassium 3.5 mmol/L (3.5-5.1); Sodium 142 mmol/L (136-145)
[2022-11-29] MEDS: Allopurinol 100 MG TAB PO SCH (08:53)
[2022-11-29] MEDS: DULoxetine 30 MG CAP PO SCH ×2 (08:53→21:00)
[2022-11-29] MEDS: Carvedilol 25 MG TAB PO SCH ×2 (08:53→21:01)
[2022-11-29] MEDS: Nystatin 500,000 UNITS/5 ML UDCUP SSW SCH ×4 (08:54→21:00)
[2022-11-29] MEDS: Spironolactone 25 MG TAB PO SCH (08:54)
[2022-11-29] MEDS: Mometasone/Formoterol 60 PUFF AER INH SCH ×2 (08:54→21:02)
[2022-11-29] MEDS: Empagliflozin 10 MG TAB PO SCH (08:54)
[2022-11-29] MEDS: Torsemide 20 MG TAB PO SCH ×2 (08:54→14:17)
[2022-11-29] MEDS ORDERED: Lidocaine 5% Patch TD SCH (09:00)
[2022-11-29] MEDS: HYDROcodone/Acetaminophen 5/325 mg Tablet PO PRN ×2 (09:25→21:01)
[2022-11-29] MEDS: Methocarbamol 500 MG TAB PO PRN ×3 (09:26→21:00)
[2022-11-29] MEDS: Senokot S 8.6-50 MG TAB PO PRN (11:31)
[2022-11-29] MEDS: Lidocaine 5% Patch TD SCH (16:58)
[2022-11-29] MEDS ORDERED: Transdermal Patch Removal TOP SCH (21:00)
[2022-11-29] MEDS: Aripiprazole 10 MG TAB PO SCH (21:01)
[2022-11-29] MEDS: Montelukast Sodium 10 mg Tablet PO SCH (21:01)
[2022-11-30] MEDS: Ipratropium Bromide 2.5 ml Neb NEB SCH ×4 (00:23→18:08)
[2022-11-30] MEDS: Transdermal Patch Removal TOP SCH (05:46)
[2022-11-30] MEDS: Methocarbamol 500 MG TAB PO PRN ×3 (06:26→20:35)
[2022-11-30] MEDS: Allopurinol 100 MG TAB PO SCH (08:15)
[2022-11-30] MEDS: Carvedilol 25 MG TAB PO SCH ×2 (08:15→20:35)
[2022-11-30] MEDS: HYDROcodone/Acetaminophen 5/325 mg Tablet PO PRN ×2 (08:15→20:35)
[2022-11-30] MEDS: DULoxetine 30 MG CAP PO SCH ×2 (08:16→20:35)
[2022-11-30] MEDS: Empagliflozin 10 MG TAB PO SCH (08:16)
[2022-11-30] MEDS: Torsemide 20 MG TAB PO SCH ×2 (08:16→14:17)
[2022-11-30] MEDS: Spironolactone 25 MG TAB PO SCH (08:16)
[2022-11-30] MEDS: Mometasone/Formoterol 60 PUFF AER INH SCH ×2 (08:16→20:36)
[2022-11-30] MEDS: Nystatin 500,000 UNITS/5 ML UDCUP SSW SCH ×4 (08:18→20:36)
[2022-11-30] MEDS: Lidocaine 5% Patch TD SCH (17:33)
[2022-11-30] MEDS: Aripiprazole 10 MG TAB PO SCH (20:36)
[2022-11-30] MEDS: Montelukast Sodium 10 mg Tablet PO SCH (20:36)
[2022-12-01] MEDS: Ipratropium Bromide 2.5 ml Neb NEB SCH ×4 (00:16→18:10)
[2022-12-01] MEDS: Transdermal Patch Removal TOP SCH (05:30)
[2022-12-01] MEDS: Methocarbamol 500 MG TAB PO PRN ×3 (07:17→20:27)
[2022-12-01] MEDS: HYDROcodone/Acetaminophen 5/325 mg Tablet PO PRN ×3 (07:17→20:27)
[2022-12-01] MEDS: Empagliflozin 10 MG TAB PO SCH (08:01)
[2022-12-01] MEDS: Torsemide 20 MG TAB PO SCH ×2 (08:01→13:40)
[2022-12-01] MEDS: Carvedilol 25 MG TAB PO SCH ×2 (08:01→20:23)
[2022-12-01] MEDS: DULoxetine 30 MG CAP PO SCH ×2 (08:01→20:23)
[2022-12-01] MEDS: Spironolactone 25 MG TAB PO SCH (08:02)
[2022-12-01] MEDS: Allopurinol 100 MG TAB PO SCH (08:02)
[2022-12-01] MEDS: Nystatin 500,000 UNITS/5 ML UDCUP SSW SCH ×4 (08:03→20:32)
[2022-12-01] MEDS: Mometasone/Formoterol 60 PUFF AER INH SCH ×2 (08:03→20:25)
[2022-12-01] MEDS: Ondansetron ODT 4 MG TAB SL PRN (12:05)
[2022-12-01] MEDS: Lidocaine 5% Patch TD SCH (16:57)
[2022-12-01] MEDS: Aripiprazole 10 MG TAB PO SCH (20:23)
[2022-12-01] MEDS: Montelukast Sodium 10 mg Tablet PO SCH (20:23)
[2022-12-02] MEDS: Ipratropium Bromide 2.5 ml Neb NEB SCH ×3 (00:17→11:30)
[2022-12-02 05:30] VITALS: BMI 48.8
[2022-12-02] MEDS: HYDROcodone/Acetaminophen 5/325 mg Tablet PO PRN ×2 (05:50→12:57)
[2022-12-02] MEDS: Transdermal Patch Removal TOP SCH (05:50)
[2022-12-02] MEDS: Methocarbamol 500 MG TAB PO PRN ×2 (05:52→12:59)
[2022-12-02 07:17] VITALS: TEMP 97.7
[2022-12-02] MEDS: Mometasone/Formoterol 60 PUFF AER INH SCH (07:44)
[2022-12-02] MEDS: Carvedilol 25 MG TAB PO SCH (07:45)
[2022-12-02] MEDS: Allopurinol 100 MG TAB PO SCH (07:45)
[2022-12-02] MEDS: Empagliflozin 10 MG TAB PO SCH (07:45)
[2022-12-02] MEDS: Spironolactone 25 MG TAB PO SCH (07:45)
[2022-12-02] MEDS: Torsemide 20 MG TAB PO SCH (07:45)
[2022-12-02] MEDS: DULoxetine 30 MG CAP PO SCH (07:45)
[2022-12-02] MEDS: Nystatin 500,000 UNITS/5 ML UDCUP SSW SCH ×2 (07:46→12:57)
[2022-12-02 10:53] VITALS: BP 135/72
[2022-12-02] MEDS: Ondansetron ODT 4 MG TAB SL PRN (12:32)
== END 2022-12-02 13:15 | disposition home health service (06) | DRG 948 ==
LOC: NAV ACUTE 12:05
PROVIDERS: ADMIT Family Medicine; ATTEND Family Medicine
DX: R53.81 Other malaise (principal); I50.32 Chronic diastolic (congestive) heart failure; R53.1 Weakness; J44.9 Chronic obstructive pulmonary disease, unspecified; M79.7 Fibromyalgia; I87.8 Other specified disorders of veins; I48.91 Unspecified atrial fibrillation; L89.322 Pressure ulcer of left buttock, stage 2; L89.312 Pressure ulcer of right buttock, stage 2; K59.00 Constipation, unspecified; K21.9 Gastro-esophageal reflux disease without esophagitis; E11.22 Type 2 diabetes mellitus with diabetic chronic kidney disease; N18.31 Chronic kidney disease, stage 3a; N28.89 Other specified disorders of kidney and ureter; Z20.822 Contact with and (suspected) exposure to COVID-19; M19.90 Unspecified osteoarthritis, unspecified site; M10.9 Gout, unspecified; M47.816 Spondylosis without myelopathy or radiculopathy, lumbar region; Z90.89 Acquired absence of other organs; Z87.01 Personal history of pneumonia (recurrent); Z90.49 Acquired absence of other specified parts of digestive tract; Z82.49 Family history of ischemic heart disease and other diseases of the circulatory system; Z87.891 Personal history of nicotine dependence; Z88.8 Allergy status to other drugs, medicaments and biological substances; Z88.0 Allergy status to penicillin; Z91.012 Allergy to eggs; Z91.048 Other nonmedicinal substance allergy status; Z79.899 Other long term (current) drug therapy
CPT/HCPCS: 36415; 36416; 71045; 80048; 80053; 84484; 85025; 85610; 85730; 87086; 87811; 94640; J0696; J7612; J7614; Q0162

== ENCOUNTER 2024-04-16 20:22 | Emergency (ER) | payer MEDICARE ==
[2024-04-16] MEDS ORDERED: HYDROcodone/Acetaminophen 10/325 mg Tablet ONE (20:59)
[2024-04-16] MEDS ORDERED: Morphine 4 MG/ML VIAL ONE (22:05)
== END 2024-04-16 22:39 | disposition home or self-care (01) ==
LOC: NAV ERS 20:22
DX: M17.11 Unilateral primary osteoarthritis, right knee (principal); M25.561 Pain in right knee; E11.9 Type 2 diabetes mellitus without complications; J44.9 Chronic obstructive pulmonary disease, unspecified; Z87.891 Personal history of nicotine dependence; Z79.899 Other long term (current) drug therapy
CPT/HCPCS: 96372; J2270

== ENCOUNTER 2024-05-18 16:29 | Emergency (ER) | payer MEDICARE ==
[2024-05-18 17:36] LABS: ALT (SGPT) 24 U/L (8-55); AST (SGOT) 19 U/L (5-34); Albumin 3.2 g/dL (3.4-4.8); Alkaline Phosphatase 112 U/L (40-110); Anion Gap 18 mmol/L (10-20); BUN (Urea Nitrogen) 41 mg/dL (9.8-20.1); Bilirubin, Total 0.8 mg/dL (0.2-1.2); Calc. Creatinine Clearance 0 mL/min (70-130); Calcium 9.8 mg/dL (7.8-10.44); Carbon Dioxide 24 mmol/L (23-31); Chloride 95 mmol/L (98-107); Estimated GFR 13; Globulin 4.1 g/dL (2.4-3.5); Glucose 112 mg/dL (80-115); Lipase 24 U/L (8-78); Potassium 3.4 mmol/L (3.5-5.1); Protein, Total 7.3 g/dL (5.8-8.1); Sodium 134 mmol/L (136-145)
[2024-05-18 17:41] LABS: Anisocytosis SLIGHT = 6-15 cells (100X) (0-5/hpf); Band 4 % (5-11); Eosinophils 3 % (0-10); Hematocrit 48.4 % (36.0-47.0); Hemoglobin 14.4 g/dL (12.0-16.0); Lymphocytes 11 % (21-51); MDiff Complete? YES; Mean Corpuscular HGB CONC 29.7 g/dL (32.0-36.0); Mean Corpuscular Hemoglobin 28.2 pg (27.0-31.0); Mean Platelet Volume 12.9 fL (7.4-10.4); Monocytes 8 % (0-10); Neutrophil 74 % (42-75); Platelet Count 159 10x3/uL (130-400); RBC Distribution Width 16.1 % (11.5-14.5); Stomatocytes SLIGHT = 2-5 cells (100X) (0-1/hpf); White Blood Cell (WBC) Count 16.8 10x3/uL (4.8-10.8)
[2024-05-18 20:05] LABS: Bilirubin Negative (Negative); Blood, Urine Large (Negative); Clarity Cloudy (Clear); Glucose, Urine (Dipstick) 500 mg/dL (Negative); Ketone, Urine Negative (Negative); Leukocyte Moderate (Negative); Nitrite Negative (Negative); Protein, Urine (Dipstick) Trace mg/dL (Neg-Trace); Urobilinogen 0.2 mg/dL (Less than 2); pH, Urine 5.5 (5.0-9.0)
[2024-05-18] MEDS ORDERED: Cefepime 2 GM VIAL ONE (20:05)
[2024-05-18] MEDS ORDERED: Sodium Chloride 0.9% 100 ML ONE (20:05)
[2024-05-18 20:10] LABS: Bacteria/HPF 4+ HPF (None Seen); CAUTI Indications for Culture Fever or rigors; RBC/HPF 21-50 HPF (0-3); Squamous Epithelial 0-3 HPF (0-3); WBC/HPF Greater Than 50 HPF (0-3)
[2024-05-18 20:11] LABS: Urine Culture Reflex Yes Yes
[2024-05-18] MEDS ORDERED: metroNIDAZOLE 500 MG (100 mL) BAG ONE (20:27)
[2024-05-18] MEDS ORDERED: Sodium Chloride 0.9% 500 ML ONE (21:20)
[2024-05-18] MEDS ORDERED: Vancomycin 1 GM VIAL ONE (21:20)
[2024-05-18 21:53] LABS: Lactic Acid 2.3 mmol/L (0.5-2.2)
== END 2024-05-18 23:00 | disposition short-term general hospital (02) ==
LOC: NAV ERS 16:29
DX: K52.9 Noninfective gastroenteritis and colitis, unspecified (principal); N30.00 Acute cystitis without hematuria; E86.0 Dehydration; I50.9 Heart failure, unspecified; E11.9 Type 2 diabetes mellitus without complications; E66.01 Morbid (severe) obesity due to excess calories; B59 Pneumocystosis; N28.9 Disorder of kidney and ureter, unspecified; J44.89 Other specified chronic obstructive pulmonary disease; Z87.891 Personal history of nicotine dependence; Z79.899 Other long term (current) drug therapy
CPT/HCPCS: 36415; 74176; 80053; 81001; 83605; 83690; 85025; 87040; 87077; 87086; 87149; 87186; 96361; 96365; 96367; 96375; J0692; J3370; J7030

== ENCOUNTER 2024-05-27 16:40 | Inpatient (IN) | payer MEDICARE ==
[2024-05-28] MEDS ORDERED: Levalbuterol HCl 1.25 MG/0.5 ML NEB NEB PRN (09:06)
[2024-05-28] MEDS ORDERED: Budesonide 0.5 MG/2 ML NEB NEB PRN (09:10)
[2024-05-28] MEDS: Ipratropium Bromide 2.5 ml Neb NEB SCH ×2 (12:11→14:41)
[2024-05-28] MEDS ORDERED: Dextrose 50% Abboject 50 ML SYRINGE SLOW IVP PRN (12:52)
[2024-05-28] MEDS ORDERED: Insulin Regular, Human 100 UNIT/ML 10 ML VIAL SC PRN (12:52)
[2024-05-28] MEDS ORDERED: HumaLOG 300 UNITS/3 ML VIAL SC PRN ×2 (12:52→13:10)
[2024-05-28] MEDS ORDERED: Glucagon 1 MG/ML KIT IM PRN (12:52)
[2024-05-28] MEDS ORDERED: VABORBACTAM IVPB SCH (14:00)
[2024-05-28] MEDS ORDERED: MEROPENEM IVPB SCH (14:00)
[2024-05-28] MEDS: Torsemide 20 MG TAB PO SCH (14:41)
[2024-05-28] MEDS: Levalbuterol HCl 1.25 MG/0.5 ML NEB NEB SCH (15:11)
[2024-05-28] MEDS: VABORBACTAM IVPB SCH (15:12)
[2024-05-28] MEDS: MEROPENEM IVPB SCH (15:12)
[2024-05-28] MEDS: SODIUM CHLORIDE 0.9% IVPB SCH (15:12)
[2024-05-28] MEDS: Levalbuterol 1.25 MG/3 ML NEB ONE (17:39)
[2024-05-28] MEDS: Aripiprazole 10 MG TAB PO SCH (21:26)
[2024-05-28] MEDS: Montelukast Sodium 10 mg Tablet PO SCH (21:27)
[2024-05-28] MEDS: Allopurinol 300 MG TAB PO SCH (21:27)
[2024-05-28] MEDS: Carvedilol 25 MG TAB PO SCH (21:27)
[2024-05-28] MEDS: DULoxetine 30 MG CAP PO SCH (21:27)
[2024-05-28] MEDS: Budesonide 0.5 MG/2 ML NEB NEB SCH (21:28)
[2024-05-28] MEDS: Levalbuterol 1.25 MG/3 ML NEB NEB SCH (21:50)
[2024-05-29 06:03] LABS: #Basophils 0.1 thou/uL (0.0-0.2); #Eosinphils 0.7 thou/uL (0.0-0.7); #Lymphocytes 2.4 thou/uL (1.20-3.40); #Neutrophils 4.2 thou/uL (1.40-6.50); %Basophils 1.2 % (0.0-1.0); %Eosinophils 8.9 % (0.0-10.0); %Lymphocytes 28.8 % (21.0-51.0); %Monocytes 11.6 % (0.0-10.0); %Neutrophils 49.6 % (42.0-75.0); Hematocrit 42.5 % (36.0-47.0); Hemoglobin 12.8 g/dL (12.0-16.0); Mean Corpuscular Hemoglobin 28.1 pg (27.0-31.0); Mean Corpuscular Volume 93.5 fl (78.0-98.0); Mean Platelet Volume 8.6 fL (7.4-10.4); Platelet Count 173 10x3/uL (130-400); Red Blood Cell (RBC) Count 4.55 mill/uL (4.20-5.40); White Blood Cell (WBC) Count 8.4 10x3/uL (4.8-10.8)
[2024-05-29 06:10] LABS: ALT (SGPT) 27 U/L (8-55); AST (SGOT) 31 U/L (5-34); Albumin 2.5 g/dL (3.4-4.8); Alkaline Phosphatase 103 U/L (40-110); Anion Gap 15 mmol/L (10-20); BUN (Urea Nitrogen) 20 mg/dL (9.8-20.1); Bilirubin, Total 0.5 mg/dL (0.2-1.2); Calc. Creatinine Clearance 87 mL/min (70-130); Calcium 9.3 mg/dL (7.8-10.44); Carbon Dioxide 35 mmol/L (23-31); Chloride 91 mmol/L (98-107); Estimated GFR 46; Globulin 4.4 g/dL (2.4-3.5); Glucose 95 mg/dL (80-115); Potassium 3.8 mmol/L (3.5-5.1); Protein, Total 6.9 g/dL (5.8-8.1); Sodium 137 mmol/L (136-145)
[2024-05-29] MEDS: Spironolactone 25 MG TAB PO SCH (07:42)
[2024-05-29] MEDS: metFORMIN 500 MG TAB PO SCH (08:10)
[2024-05-29] MEDS: Saccharomyces boulardii 250 MG CAP PO SCH (08:39)
[2024-05-29] MEDS: Rosuvastatin 10 MG TAB PO SCH (08:40)
[2024-05-29] MEDS: Loratadine 10 MG TAB PO SCH (08:40)
[2024-05-29] MEDS: Pantoprazole DR 40 MG TAB PO SCH (08:40)
[2024-05-29] MEDS: Allopurinol 100 MG TAB PO SCH (08:41)
[2024-05-29] MEDS: Enoxaparin 40 MG (0.4 mL) SYRINGE SC SCH (08:43)
[2024-05-29] MEDS ORDERED: Non-Formulary Item 1 EACH (Budesonide-Formoterol [Symbicort 160-4.5] 160 MG/4.5 MG Aer) INH SCH (09:00)
[2024-05-29] MEDS: SYMBICORT INH SCH ×2 (09:53→21:01)
[2024-05-29] MEDS ORDERED: Mometasone 200 MCG/Formoterol 5 MCG 120 PUFF INHALER INH SCH (18:30)
[2024-05-30] MEDS: Ondansetron ODT 4 MG TAB SL PRN (02:14)
[2024-05-30] MEDS: Acetaminophen 325 MG TAB PO PRN (19:10)
[2024-05-31 06:06] LABS: Anion Gap 17 mmol/L (10-20); BUN (Urea Nitrogen) 19 mg/dL (9.8-20.1); Calc. Creatinine Clearance 93 mL/min (70-130); Carbon Dioxide 27 mmol/L (23-31); Chloride 100 mmol/L (98-107); Potassium 3.7 mmol/L (3.5-5.1); Sodium 140 mmol/L (136-145)
[2024-05-31 06:07] LABS: Calcium 9.2 mg/dL (7.8-10.44); Estimated GFR 51; Glucose 100 mg/dL (80-115)
[2024-05-31] MEDS: MEROPENEM/VABORBACTAM 4 GM in Sodium Chloride 0.9% 250 ML 250 ML IVPB SCH (14:07)
[2024-05-31] MEDS: diphenhydrAMINE 25 MG CAP PO PRN (16:48)
[2024-05-31] MEDS: Nystatin Powder 15 GM BOT TOP PRN (16:48)
[2024-06-01] MEDS ORDERED: Polyethylene Glycol 3350 17 GM Packet PO PRN (12:48)
[2024-06-01] MEDS ORDERED: Senokot S 8.6-50 MG TAB PO PRN (12:48)
[2024-06-01] MEDS: Ipratropium Bromide 2.5 ml Neb NEB SCH (13:30)
[2024-06-01] MEDS: Levalbuterol 1.25 MG/3 ML NEB NEB SCH (13:31)
[2024-06-02] MEDS: MEROPENEM/VABORBACTAM 4 GM in Sodium Chloride 0.9% 250 ML 250 ML IVPB SCH (17:38)
[2024-06-03 06:07] LABS: Anion Gap 14 mmol/L (10-20); BUN (Urea Nitrogen) 22 mg/dL (9.8-20.1); Calc. Creatinine Clearance 95 mL/min (70-130); Calcium 9.5 mg/dL (7.8-10.44); Carbon Dioxide 32 mmol/L (23-31); Chloride 98 mmol/L (98-107); Estimated GFR 52; Glucose 101 mg/dL (80-115); Sodium 140 mmol/L (136-145)
[2024-06-03 06:23] LABS: Eosinophils 11 % (0-10); Hemoglobin 12.8 g/dL (12.0-16.0); Lymphocytes 36 % (21-51); MDiff Complete? YES; Mean Corpuscular HGB CONC 29.8 g/dL (32.0-36.0); Mean Corpuscular Hemoglobin 28.1 pg (27.0-31.0); Mean Corpuscular Volume 94.4 fl (78.0-98.0); Mean Platelet Volume 9.3 fL (7.4-10.4); Monocytes 15 % (0-10); Neutrophil 38 % (42-75); Platelet Count 209 10x3/uL (130-400); RBC Distribution Width 15.2 % (11.5-14.5); Red Blood Cell (RBC) Count 4.55 mill/uL (4.20-5.40); White Blood Cell (WBC) Count 7.4 10x3/uL (4.8-10.8)
[2024-06-03] MEDS: traMADol HCl 50 MG TAB PO PRN (14:39)
[2024-06-05 05:23] VITALS: BMI 50.5
[2024-06-05] MEDS: Acetaminophen 325 MG TAB PO PRN (11:02)
[2024-06-05 12:33] VITALS: BMI 50.5
[2024-06-06 07:09] VITALS: BP 142/82; TEMP 98.5
== END 2024-06-06 18:37 | disposition home health service (06) | DRG 945 ==
LOC: NAV ACUTE 05-28 11:29
PROVIDERS: ADMIT Student in an Organized Health Care Education/Training Program; ATTEND Student in an Organized Health Care Education/Training Program
PROC: F07 Physical Rehabilitation and Diagnostic Audiology, Rehabilitation, Motor Treatment (ICD-10-PCS; principal; 2024-05-31)
DX: R53.81 Other malaise (principal); I50.30 Unspecified diastolic (congestive) heart failure; N39.0 Urinary tract infection, site not specified; Z68.43 Body mass index [BMI] 50.0-59.9, adult; Z16.24 Resistance to multiple antibiotics; M10.9 Gout, unspecified; E66.01 Morbid (severe) obesity due to excess calories; N18.9 Chronic kidney disease, unspecified; J45.909 Unspecified asthma, uncomplicated; J44.9 Chronic obstructive pulmonary disease, unspecified; K21.9 Gastro-esophageal reflux disease without esophagitis; M79.7 Fibromyalgia; Z90.49 Acquired absence of other specified parts of digestive tract; Z79.899 Other long term (current) drug therapy; Z79.84 Long term (current) use of oral hypoglycemic drugs; Z79.51 Long term (current) use of inhaled steroids; Z88.8 Allergy status to other drugs, medicaments and biological substances; I89.0 Lymphedema, not elsewhere classified; L98.429 Non-pressure chronic ulcer of back with unspecified severity; B96.1 Klebsiella pneumoniae [K. pneumoniae] as the cause of diseases classified elsewhere; R73.03 Prediabetes
CPT/HCPCS: 36415; 36416; 80048; 80053; 85025; 86140; 94640; J1650; J2186; J7050; J7612; J7626; J7644; Q0162

== ENCOUNTER 2024-09-05 20:44 | Outpatient (CLI) | payer MEDICARE | END 2024-09-05 20:45 | disposition home or self-care (01) | LOC: NAV RAD 20:44 | PROVIDERS: ATTEND Nurse Practitioner Family | DX: I50.9 Heart failure, unspecified (principal) | CPT/HCPCS: 71046 ==

== ENCOUNTER 2024-11-15 18:03 | Emergency (ER) | payer MEDICAID, MEDICARE ==
[2024-11-15 18:31] LABS: Bilirubin Negative (Negative); Blood, Urine Negative (Negative); Clarity Clear (Clear); Glucose, Urine (Dipstick) Negative (Negative); Ketone, Urine Negative (Negative); Leukocyte Small (Negative); Nitrite Positive (Negative); Protein, Urine (Dipstick) Trace mg/dL (Neg-Trace); Urobilinogen 0.2 mg/dL (Less than 2)
[2024-11-15 19:18] LABS: Bacteria/HPF 3+ HPF (None Seen); CAUTI Indications for Culture Alt mental st,lethar; RBC/HPF 0-3 HPF (0-3); Transitional Epithelial 0-3 HPF (None Seen); WBC/HPF Greater than 50 HPF (0-3)
[2024-11-15 19:22] LABS: Urine Culture Reflex Yes Yes
[2024-11-15] MEDS ORDERED: Nitrofurantoin Monohyd/M-Cryst 100 MG CAP ONE (19:58)
[2024-11-15] MEDS ORDERED: Fluconazole 100 MG TAB ONE ×2 (20:11→20:12)
== END 2024-11-15 20:10 | disposition home or self-care (01) ==
LOC: NAV ERS 18:03
DX: N39.0 Urinary tract infection, site not specified (principal); E11.9 Type 2 diabetes mellitus without complications; I11.0 Hypertensive heart disease with heart failure; I50.9 Heart failure, unspecified; Z87.891 Personal history of nicotine dependence
CPT/HCPCS: 81001; 87077; 87086; 87186; 99283

== ENCOUNTER 2025-09-09 10:11 | Emergency (ER) | payer OTHER ==
[2025-09-09 11:08] LABS: Hematocrit 39.8 % (36.0-47.0); Hemoglobin 12.8 g/dL (12.0-16.0); Mean Corpuscular Hemoglobin 29.6 pg (27.0-31.0); Mean Corpuscular Volume 92.2 fl (78.0-98.0); Platelet Count 292 10x3/uL (130-400); Red Blood Cell (RBC) Count 4.32 mill/uL (4.20-5.40); White Blood Cell (WBC) Count 14.2 10x3/uL (4.8-10.8)
[2025-09-09 11:09] LABS: #Basophils 0.4 thou/uL (0.0-0.2); #Eosinophils 0.3 thou/uL (0.0-0.7); #Lymphocytes 2.6 thou/uL (1.20-3.40); #Monocytes 1.0 thou/uL (0.11-0.59); #Neutrophils 9.8 thou/uL (1.40-6.50); %Basophils 2.4 % (0.0-1.0); %Eosinophils 2.4 % (0.0-10.0); %Lymphocytes 18.6 % (21.0-51.0); %Monocytes 7.4 % (0.0-10.0); %Neutrophils 69.0 % (42.0-75.0); Manual Diff?? NO
[2025-09-09 11:15] LABS: INR-International Normal Ratio 1.1; Prothrombin Time 13.9 sec (12.0-14.7)
[2025-09-09 11:16] LABS: PTT 27.2 sec (22.9-36.1)
[2025-09-09 11:20] LABS: ALT (SGPT) 16 U/L (Less than 34); AST (SGOT) 21 U/L (11-34); Albumin 3.3 g/dL (3.1-4.5); Alkaline Phosphatase 117 U/L (40-110); Anion Gap 17 mmol/L (10-20); BUN (Urea Nitrogen) 20 mg/dL (9.8-20.1); Bilirubin, Total 0.7 mg/dL (0.3-1.2); Calc. Creatinine Clearance 0 mL/min (70-130); Calcium 10.5 mg/dL (7.8-10.44); Carbon Dioxide 24 mmol/L (23-31); Chloride 107 mmol/L (98-107); Globulin 4.2 g/dL (2.4-3.5); Glucose 106 mg/dL (83-110); Potassium 4.2 mmol/L (3.5-5.1); Sodium 144 mmol/L (136-145)
== END 2025-09-09 14:05 | disposition home or self-care (01) ==
LOC: NAV ERS 10:11
DX: S80.11XA Contusion of right lower leg, initial encounter (principal); M25.511 Pain in right shoulder; M25.551 Pain in right hip; I11.0 Hypertensive heart disease with heart failure; I50.9 Heart failure, unspecified; M79.7 Fibromyalgia; E66.9 Obesity, unspecified; J44.9 Chronic obstructive pulmonary disease, unspecified; Z79.899 Other long term (current) drug therapy; Z79.51 Long term (current) use of inhaled steroids; W17.89XA Other fall from one level to another, initial encounter
CPT/HCPCS: 36415; 72192; 80053; 85025; 85610; 85730; 96372; J2270; Q0162

== ENCOUNTER 2025-09-11 20:25 | Emergency (ER) | payer OTHER ==
[2025-09-11 21:14] LABS: #Basophils 0.4 thou/uL (0.0-0.2); #Eosinophils 0.3 thou/uL (0.0-0.7); #Lymphocytes 2.7 thou/uL (1.20-3.40); #Monocytes 1.5 thou/uL (0.11-0.59); #Neutrophils 7.7 thou/uL (1.40-6.50); %Basophils 2.9 % (0.0-1.0); %Eosinophils 2.0 % (0.0-10.0); %Lymphocytes 21.3 % (21.0-51.0); %Monocytes 12.3 % (0.0-10.0); %Neutrophils 61.5 % (42.0-75.0); Hematocrit 34.1 % (36.0-47.0); Hemoglobin 11.1 g/dL (12.0-16.0); Mean Corpuscular Hemoglobin 29.7 pg (27.0-31.0); Mean Corpuscular Volume 91.1 fl (78.0-98.0); Platelet Count 264 10x3/uL (130-400); Red Blood Cell (RBC) Count 3.74 mill/uL (4.20-5.40); White Blood Cell (WBC) Count 12.5 10x3/uL (4.8-10.8)
[2025-09-11 21:29] LABS: Troponin I 0.013 ng/mL (< 0.028)
[2025-09-11 21:30] LABS: ALT (SGPT) 15 U/L (Less than 34); AST (SGOT) 21 U/L (11-34); Albumin 3.0 g/dL (3.1-4.5); Alkaline Phosphatase 107 U/L (40-110); Anion Gap 15 mmol/L (10-20); BUN (Urea Nitrogen) 19 mg/dL (9.8-20.1); Bilirubin, Total 0.6 mg/dL (0.3-1.2); Calc. Creatinine Clearance 0 mL/min (70-130); Calcium 9.9 mg/dL (7.8-10.44); Carbon Dioxide 24 mmol/L (23-31); Chloride 104 mmol/L (98-107); Globulin 3.9 g/dL (2.4-3.5); Glucose 117 mg/dL (83-110); Potassium 4.1 mmol/L (3.5-5.1); Sodium 139 mmol/L (136-145)
[2025-09-11] MEDS ORDERED: Cefepime 2 GM VIAL ONE (21:32)
[2025-09-11] MEDS ORDERED: Prochlorperazine 10 MG/2 ML VIAL ONE (21:58)
[2025-09-11] MEDS ORDERED: Ondansetron PF 4 MG/2 ML Vial ONE (21:58)
[2025-09-11] MEDS ORDERED: Ketorolac Tromethamine 30 MG (1 mL) VIAL ONE (21:58)
[2025-09-11] MEDS ORDERED: diphenhydrAMINE 50 MG/ML VIAL ONE (21:58)
== END 2025-09-11 22:43 | disposition short-term general hospital (02) ==
LOC: NAV ERS 20:25
DX: L03.115 Cellulitis of right lower limb (principal); S80.11XD Contusion of right lower leg, subsequent encounter; R79.89 Other specified abnormal findings of blood chemistry; R09.02 Hypoxemia; I11.0 Hypertensive heart disease with heart failure; I50.9 Heart failure, unspecified; E66.01 Morbid (severe) obesity due to excess calories; E78.00 Pure hypercholesterolemia, unspecified; J44.89 Other specified chronic obstructive pulmonary disease; Z87.891 Personal history of nicotine dependence; Z79.899 Other long term (current) drug therapy; Z79.51 Long term (current) use of inhaled steroids; W19.XXXD Unspecified fall, subsequent encounter
CPT/HCPCS: 71045; 80053; 83880; 84484; 85025; 85379; 93005; 94760; 96365; 96375; J0692; J0780; J1200; J1885; J2405; J3373; J7030